=== PATIENT | female | born 1995 | race African-American/Black ===

== ENCOUNTER 2019-06-14 15:53 | Emergency (ER) | payer OTHER, SELFPAY ==
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
[2019-06-14 16:00] VITALS: BP 121/70; PULSE 100; RESP 18; TEMP 37.6; O2SAT 100
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
== END 2019-06-14 18:10 | disposition home or self-care (01) ==
PROVIDERS: Emergency Provider Emergency Medicine
DX: S39.012A Strain of muscle, fascia and tendon of lower back, initial encounter (principal); N94.89 Other specified conditions associated with female genital organs and menstrual cycle; V44.5XXA Car driver injured in collision with heavy transport vehicle or bus in traffic accident, initial encounter
CPT/HCPCS: 72128; 72131; 81025; 99284

== ENCOUNTER 2022-06-29 02:19 | Day surgery (SDC) | payer OTHER, SELFPAY ==
[2022-06-23 11:22] VITALS: BMI 19.7
--- NOTE | 2022-06-23 11:25 | PC.NURSE ---
Report to the Outpatient Waiting Room, entrance under the green pavilion located off [facility], at time 1000 on date 06/29/22. Planned Procedure Time: 1200. Time changes happen often and if your time is changed the preop area will call you the afternoon before. - You and your visitor will be asked to self-screen and do not enter if you have any COVID symptoms. - A mask is optional within the hospital at this time. Patients may have clear liquids (water, carbonated beverages, clear teas, apple juice) until 3 hours prior to surgery with a maximum of 20 ounces. - No food from midnight until time of surgery Take the following medications with a SIP of water the morning of surgery: N/A DO NOT STOP ANY OF YOUR OTHER PRESCRIPTION MEDICATIONS PRIOR TO SURGERY EXCEPT THE FOLLOWING Medications to discontinue per physician: N/A Date to take last dose: N/A Please no make-up, nail belizean, hairspray, perfume, deodorant, or body powder the day of surgery. No jewelry (including any body piercings) or valuables the day of surgery, leave them at home. Please take a shower or bath the night before, or the morning of, surgery with an antibacterial soap. Wear comfortable, loose fitting clothing. - Jewelry must be removed prior to entering the operating room. Rings and piercings that are not removed may be cut off. - The hospital will not accept responsibility for valuables. - Please leave all valuables, including medications, at home the day of surgery. If you are going home after surgery, a licensed special education bus driver must drive you home. - NO public transportation without another adult if you receive anesthesia. - We recommend that an adult stay with you for 24 hours following discharge. - We also recommend that you do not drive, make important decision, drink alcoholic beverages, or take any drugs that were not prescribed by your health care provider for at least 24 hours after your discharge time. Follow any additional instructions given to you from your surgeon. If you or anyone in your household have experienced Covid symptoms in the past week, please notify your surgeon or the nurse liaison at the phone number below for possible testing. Telephone instructions given to PT - HERBERT GAONA and asked if any additional questions and then verbalized understanding. Patient advised to call surgeon office or pre surgery nurse liaison [phone] if any additional questions.
[2022-06-29] MEDS: ACETAMINOPHEN 500 MG TABLET 1000 MG PO (10:16)
[2022-06-29 10:23] VITALS: BP 115/64; PULSE 81; RESP 16; TEMP 36.6; O2SAT 100
--- NOTE | 2022-06-29 10:52 | P.PNAN_ITS ---
Anes - Initial Pre Proc Eval Procedure: Operation Date: 06/29/22 12:00 Proposed Procedures p Suction Dilation and Curettage - Cesar Duque MD Date/Time: 06/29/22 10:52 Surgeon: Cesar Duque MD Pre Op Diagnosis: Missed AB Patient Data Age: 26 Gender: F Height: 1.63 m Weight: 51 kg Last Vital Signs Temp 36.6 C 06/29/22 10:23 Pulse 81 06/29/22 10:23 Resp 16 06/29/22 10:23 BP 115/64 06/29/22 10:23 Pulse Ox 100 06/29/22 10:23 O2 Del Method Room Air 06/29/22 10:23 Allergies Allergy/AdvReac Type Severity Reaction Status Date / Time No Known Allergies Allergy Verified 06/29/22 10:16 Home Medications Medication Instructions Recorded Confirmed Type No Home Medications 06/29/22 06/29/22 History Patient hx anesthesia problems: none Family hx anesthesia problems: none Results Review: All pre-operative results and documents have been reviewed as part of the pre- operative evaluation. PMFSH Past Medical History Medical History Eczema Surgical History Surgical History No pertinent past surgical history Social History Social History Smoking status: Never smoker Alcohol intake: never Alcohol use details: Occasional Substance use: current Substance use type: marijuana Living arrangements: with family Additional living arrangements comments: CHILDREN Spiritual care concerns: No Anes - Eval Final PreProcedure Day of Procedure 06/29/22 10:52 Patient weight: thin Heart: regular rate and rhythm Lungs: clear to auscultation Airway: Mallampati scale class II Neurological: alert and oriented Last oral intake: >/= 8 hours ASA classification: II Emergent: no Anesthetic plan: proceed Anesthesia type and monitoring: general GIVS and standard monitoring Results Review: All pre-operative results and documents have been reviewed as part of the pre- operative evaluation. Informed Consent: The patient's anesthetic plan and its attendant risks and benefits were discussed with the patient/family/POA. Questions were solicited and answers provided to the satisfaction of the patient/family/POA.
[2022-06-29] MEDS: LACTATED RINGERS 1,000 ML 30 ML IV CONT (11:15)
--- NOTE | 2022-06-29 11:59 | WPDHPUPDATE1 ---
History and Physical Update Update Date/Time: 06/29/22 11:59 History and Physical has been reviewed, including an updated exam of the patient. There are NO changes in the patient's condition. Risks, benefits, and alternatives have been discussed and questions answered. Patient agrees to proceed with procedure.
[2022-06-29] MEDS: LIDOCAINE HCL 1% LOCAL INJ 20 ML VIAL 10 ML INFILTRATE (12:46)
[2022-06-29 12:56] VITALS: BP 112/71; PULSE 84; RESP 14; O2SAT 100
--- NOTE | 2022-06-29 13:00 | P.OP_ITS ---
Procedure Note - Detailed Date of Procedure 06/29/22 Pre-op Diagnosis Missed AB Post-op Diagnosis Same Procedure Performed Suction D&C Surgeon Cesar Duque MD Anesthesia MAC Indications missed Findings normal-appearing vulva vagina and cervix to. Moderate amount of products conception within the uterus. 8 cm uterus Description of Procedure the patient was taken the operating room. She was prepped and draped in dorsal lithotomy position after induction of mac anesthesia. A speculum was placed in the vagina. Cervix grasped with tenaculum. The cervix was dilated to about 1 cm Using Ibarra dilators. A 8. Kinyarwanda curved curette was used to perform suction D&C. The curette was introduced and vacuum was applied. The curette was removed over all surfaces of the intrauterine cavity multiple times. This was done until all the surfaces were clear and had the familiar grainy texture they can be felt through the instrument. A sharp curette was then used to curettage all the surfaces. The suction cup was then reapplied 1 more time to remove any debris. The instruments were removed. The speculum and tenaculum were removed. The patient tolerated the procedure well. She was taken recovery room stable condition. Estimated Blood Loss 50 Drains No Packing No Pathology Yes Complications No immediate complications Condition Stable Disposition PACU
[2022-06-29 13:26] VITALS: BP 116/67; PULSE 91; RESP 16
[2022-06-29 13:56] VITALS: BP 110/71; PULSE 69; RESP 16
== END 2022-06-29 14:05 | disposition home or self-care (01) ==
PROVIDERS: Visit Provider Obstetrics & Gynecology
PROC: (CPT 59820; principal; 2022-06-29 12:00)
DX: O02.1 Missed abortion (principal); Z3A.00 Weeks of gestation of pregnancy not specified; F12.90 Cannabis use, unspecified, uncomplicated
CPT/HCPCS: 59820; 36415; 85461; 86850; 86900; 86901; 88305; A9270; J2250; J2704; J3010; J7120